=== PATIENT | male | born 1970 | race American Indian/Alaskan Native ===

== ENCOUNTER 2016-04-23 12:33 | Day surgery (SDC) | payer OTHER ==
[~2016-04-23 12:33] MED LIST: NACL 0.9% 1000 ML 1,000 ML IV SCH; PEPCID PO NR; VERSED IV NR
[2016-04-23] MEDS ORDERED: ANCEF/STERILE WATER 2 GM/20 ML IV NR (13:00)
[2016-04-23] MEDS ORDERED: NACL BACTERIOSTATIC INFILTRATI ONE (13:08)
[2016-04-23] MEDS ORDERED: MORPHINE IV PRN (13:09)
[2016-04-23] MEDS ORDERED: PERCOCET 5/325 PO PRN (13:09)
--- NOTE | 2016-04-23 13:10 | Anesthesia Day of Surgery ---
Anesthesia Day of Surgery - Day of Surgery Patient Examined: Yes Patient H&P Reviewed: Yes Patient is NPO: Yes
--- NOTE | 2016-04-23 13:10 | Anesthesia Consultation ---
Anesthesia Consult and Med Hx Date of service: 04/23/16 - Airway Anesthetic Teeth Evaluation: Good ROM Head & Neck: Adequate Mental/Hyoid Distance: Adequate Mallampati Class: Class II Intubation Access Assessment: Probably Good - Pulmonary Exam CTA: Yes - Cardiac Exam Cardiac Exam: RRR - Pre-Operative Health Status ASA Pre-Surgery Classification: ASA2 Proposed Anesthetic Plan: General - Pulmonary Hx Smoking: No Hx Sleep Apnea: Yes - Cardiovascular System Hx Hypertension: No Hx Coronary Artery Disease: No - Central Nervous System Hx Seizures: No CVA: No Hx Psychiatric Problems: No - Endocrine Hx Liver Disease: No Hx Thyroid Disease: No Hx Hypothyroidism: No - Other Systems Hx Alcohol Use: Yes Hx Substance Use: No Hx Cancer: No Hx Obesity: Yes
--- NOTE | 2016-04-23 13:48 | Post Operative Note ---
Pre-op diagnosis: hematuria Post-op diagnosis: same Procedure: cysto rpgs bx Anesthesia: GETA Surgeon: SALEEM GUZMAN Estimated blood loss: minimal Condition: stable Disposition: PACU
[2016-04-23] MEDS ORDERED: DECADRON ONE (14:10)
[2016-04-23] MEDS ORDERED: SUBLIMAZE ONE (14:10)
[2016-04-23] MEDS ORDERED: DIPRIVAN 10 MG/ML IV ONE (14:10)
[2016-04-23] MEDS ORDERED: XYLOCAINE MPF 2% ONE (14:10)
[2016-04-23] MEDS ORDERED: ZOFRAN ONE (14:21)
[2016-04-23] MEDS ORDERED: TORADOL ONE (14:21)
[2016-04-23] MEDS ORDERED: WATER FOR IRRIG STERILE IR ONE ×2 (14:23)
[2016-04-23] MEDS ORDERED: OMNIPAQUE 300 MG/50 ML (CATH LAB) IV ONE (14:23)
--- NOTE | 2016-04-23 14:46 | Post Anesthesia Evaluation ---
- Post Anesthesia Evaluation Patient Participated: Yes Airway Patent: Yes Stable Respiratory Function: Yes Nausea/Vomiting: No Temp > 96.8F: Yes Pain Manageable: Yes Adequeate Hydration: Yes Anesthesia Complications: No Block Receding Appropriately: Not Applicable Patient on Ventilator: No
--- NOTE | 2016-04-23 14:54 | Post Operative Note ---
Pre-op diagnosis: HEMATURIA Post-op diagnosis: same Findings: 2 strictures Procedure: cysto rpgs Anesthesia: GETA Surgeon: SALEEM GUZMAN Estimated blood loss: none Pathology: none Condition: stable Disposition: PACU
--- NOTE | 2016-04-23 14:59 | Discharge Summary ---
Short Stay Discharge Plan Activity: other (no straining ) Weight Bearing Status: Full Weight Bearing Diet: low fat, low cholesterol, low salt Special Instructions: other (inc fluids ) Follow up with: BRIELLE WARD MD [Primary Care Provider] - 7 Days SALEEM GUZMAN MD [Staff Physician] - 14 Days
[2016-04-23 17:21] VITALS: BP 123/75
--- NOTE | 2016-04-23 20:36 | Operative Report ---
PREOPERATIVE DIAGNOSES: Hematuria, urinary tract infection. 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 PROCEDURE: Cystoscopy, dilatation with the scope under direct vision, and retrograde. SURGEON: Hernesto Dumont MD ANESTHESIA: General. FINDINGS: This is a gentleman who presented with hematuria and clots and dysuria, found to have an infection. He has had a penile implant, now presents for cystoscopy. DESCRIPTION OF PROCEDURE: The patient was brought to the operating room and placed on the operating table. Following induction of anesthesia, placed in lithotomy position, prepped and draped in usual sterile fashion. Cystourethroscopy showed two areas of narrowing in the penile and bulbous urethra, which were bypassed slowly with the 22-[place]namese scope. The prostatic urethra showed some bilobar hypertrophy, minimal. At this point, retrograde showed good filling, good drainage bilaterally. There was minimal trabeculation. The patient tolerated the procedure well, no lesions to be biopsied and Mane was not left. There was no evidence of erosion of the prosthesis. He was brought to recovery room in stable condition. JOB# [id number] JON/JUVENAL
--- NOTE | 2016-04-24 09:31 | Fluoroscopy Report ---
FLUORO RETROGRADE UROGRAPHY INDICATION: Gross hematuria. COMPARISON: None similar. FINDINGS: Submitted 9 fluoroscopic images demonstrate normal opacification and caliber of both ureters. No persistent suspicious filling defects. No hydronephrosis. CONCLUSION: Intraoperative fluoroscopic assistance provided, as described. Thank you for the opportunity to participate in this patient's care.
== END 2016-04-23 17:15 | disposition home or self-care (01) ==
LOC: OR 12:33
PROVIDERS: ATTEND Urology
DX: N35.8 Other urethral stricture (principal); N39.0 Urinary tract infection, site not specified; N40.0 Benign prostatic hyperplasia without lower urinary tract symptoms; N32.89 Other specified disorders of bladder; G47.33 Obstructive sleep apnea (adult) (pediatric); E66.9 Obesity, unspecified; Z68.31 Body mass index [BMI] 31.0-31.9, adult; Z72.89 Other problems related to lifestyle
CPT/HCPCS: 52005; 74420; A4217; C1758; J0690; J1100; J1885; J2250; J2405; J2704; J3010; J7030; Q9967